=== PATIENT | female | born 1960 | race Caucasian/White ===

== ENCOUNTER 2019-03-06 14:38 | Inpatient (IN) ==
[2019-03-06] MEDS ORDERED: ALBUTEROL/IPRATROPIUM 3 ML NEB RESP TX STA (15:01)
[2019-03-06] MEDS ORDERED: methylPREDNISolone SOD SUC 125 MG/2 ML VIAL IV STA (15:37)
[2019-03-06] MEDS ORDERED: AZITHROMYCIN INJ 500 MG in SODIUM CHLORIDE 0.9% 250 ML IV STA (15:55)
[2019-03-06] MEDS ORDERED: ALBUTEROL NEB SOLN 5 MG/ML 20 ML/BOTTLE RESP TX SCH (16:00)
[2019-03-06 16:54] LABS: Basophils % 0.7 % (0.0-0.8); Eosinophils % 0.2 % (0.00-10.9); Hematocrit 38.3 VOL% (35.7-47.0); Hemoglobin 12.4 GM/DL (12.0-16.0); Immature Granulocytes % 0.2 %; Immature Granulocytes Absolute 0.01 #; Lymphocytes # 2.4 10*3/uL (1.4-4.0); Lymphocytes % 40.3 % (21.3-54.2); Mean Corpuscular HGB Conc 32.4 GM/DL (32-36); Mean Corpuscular Volume 93.2 FL (87-102); Mean Platelet Volume 10.7 FL (9.6-12.0); Monocytes % 14.3 % (1.7-12.7); Neutrophils % 44.3 % (38.7-73.9); Platelet Count 210 T/CUMM (130-400); Red Blood Count 4.11 MC/CUMM (3.8-5.5); Red Cell Distribution Width 13.9 % (9.3-17.3); White Blood Count 5.9 T/CUMM (4-12)
[2019-03-06 17:08] LABS: Alanine Aminotransferase 43 U/L (13-56); Albumin 3.5 G/DL (3.4-5.0); Alkaline Phosphatase 131 U/L (45-117); Aspartate Amino Transferase 69 U/L (0-37); Blood Urea Nitrogen 14 MG/DL (7-18); Calcium 8.6 MG/DL (8.5-10.1); Estimated Glom Filtration Rate 77 ML/MIN; Glucose 106 MG/DL (74-106); Osmolality,Calculated 277.5 MOS/KG (273-304); Total Protein 7.4 G/DL (6.4-8.3)
[2019-03-06 17:22] LABS: Anisocytosis 1+; Lymphocytes 34 % (20-55); Macrocytosis 1+; Microcytosis Slight; Platelet Estimate Normal; Segmented Neutrophils 51 % (50-85); Total Cells Counted 100
[2019-03-06] MEDS: ALBUTEROL/IPRATROPIUM 3 ML NEB RESP TX SCH (19:03)
[2019-03-06] MEDS ORDERED: BISACODYL 5 MG TABLET PO PRN (22:22)
[2019-03-06] MEDS: FLUTICASONE/SALMETEROL 250-50 DISKUS 14 DOSE INH SCH (22:36)
[2019-03-06] MEDS: GABAPENTIN 300 MG CAPSULE PO SCH (22:36)
[2019-03-06] MEDS: ENOXAPARIN 40 MG/0.4 ML SYRINGE SUBCUT SCH (22:36)
[2019-03-06] MEDS: traZODone 50 MG TABLET PO PRN (22:37)
[2019-03-06] MEDS ORDERED: SODIUM CHLORIDE 0.9% 1,000 ML IV ONE (23:00)
[2019-03-06] MEDS: methylPREDNISolone SOD SUC 40 MG/1 ML VIAL IV SCH (23:23)
[2019-03-06] MEDS ORDERED: INFLUENZA VIRUS VACCINE 0.5 ML SYRINGE IM ONE (23:55)
[2019-03-07] MEDS: ALBUTEROL/IPRATROPIUM 3 ML NEB RESP TX SCH ×4 (00:10→19:21)
[2019-03-07] MEDS ORDERED: ALBUTEROL 2.5 MG/3 ML NEB RESP TX PRN (00:15)
[2019-03-07] MEDS: ONDANSETRON 4 MG/2 ML VIAL IV PRN ×3 (00:34→21:56)
[2019-03-07] MEDS: guaiFENesin/CODEINE 5 ML LIQUID PO PRN ×4 (00:35→19:40)
[2019-03-07] MEDS: SODIUM CHLORIDE 0.9% 1,000 ML IV SCH ×3 (00:37→21:06)
[2019-03-07] MEDS: ACETAMINOPHEN 325 MG TABLET PO PRN ×2 (01:40→19:40)
[2019-03-07 07:45] LABS: Apearance,Urine CLEAR (Clear); Bacteria,Urine Occasional /HPF (Few); Bilirubin,Urine Negative (Negative); Blood, Urine Negative (Negative); Glucose,Urine (UA) Negative (Negative); Ketones,Urine Negative (Negative); Nitrite,Urine Negative (Negative); Protein,Urine Negative; RBC,Urine 1 /HPF (0-4); Squamous Epithelial Cell,Urine Occasional /HPF (0-10); Urine Color Straw (Yellow); Urine Specific Gravity 1.008 (1.001-1.035); Urine Urobilinogen < 2.0 EU/DL (0.2-1.0); WBC,Urine <1 /HPF (0-6)
[2019-03-07 07:50] LABS: Barbiturates Screen,Urine Negative (Negative); Benzodiazepines Screen,Urine Negative (Negative); Cannabinoid Screen,Urine Negative (Negative); Opiate Screen,Urine Positive (Negative); Phencyclidine Screen,Urine Negative (Negative)
[2019-03-07] MEDS ORDERED: POTASSIUM CHLORIDE 20 MEQ/15 ML UDCUP PO ONE (08:10)
[2019-03-07] MEDS: DULoxetine 30 MG CAPSULE PO SCH (09:18)
[2019-03-07] MEDS: METOPROLOL SUCCINATE XL 100 MG TABLET PO SCH (09:18)
[2019-03-07] MEDS: AZITHROMYCIN 250 MG TABLET PO SCH (09:18)
[2019-03-07] MEDS: GABAPENTIN 300 MG CAPSULE PO SCH ×2 (09:18→21:06)
[2019-03-07] MEDS: PANTOPRAZOLE 40 MG TABLET PO SCH (09:18)
[2019-03-07] MEDS: ESTRADIOL 1 MG TABLET PO SCH (09:19)
[2019-03-07] MEDS: methylPREDNISolone SOD SUC 40 MG/1 ML VIAL IV SCH ×2 (09:19→15:37)
[2019-03-07] MEDS: FLUTICASONE/SALMETEROL 250-50 DISKUS 14 DOSE INH SCH ×2 (09:22→21:06)
[2019-03-07] MEDS: cefTRIAXone 1,000 MG in SYRINGE 1 EACH IV SCH (12:42)
[2019-03-07 13:17] LABS: Basophils % 0.1 % (0.0-0.8); Hematocrit 32.5 VOL% (35.7-47.0); Hemoglobin 10.4 GM/DL (12.0-16.0); Immature Granulocytes % 0.7 %; Immature Granulocytes Absolute 0.08 #; Lymphocytes # 1.7 10*3/uL (1.4-4.0); Lymphocytes % 13.8 % (21.3-54.2); Mean Corpuscular Volume 96.2 FL (87-102); Mean Platelet Volume 10.7 FL (9.6-12.0); Monocytes % 7.6 % (1.7-12.7); Neutrophils % 77.8 % (38.7-73.9); Platelet Count 207 T/CUMM (130-400); Red Blood Count 3.38 MC/CUMM (3.8-5.5); Red Cell Distribution Width 14.4 % (9.3-17.3)
[2019-03-07] MEDS: traZODone 50 MG TABLET PO PRN (19:41)
[2019-03-07] MEDS: ENOXAPARIN 40 MG/0.4 ML SYRINGE SUBCUT SCH (21:06)
[2019-03-07] MEDS ORDERED: HYDROmorphone 2 MG/1 ML VIAL IV ONE (21:20)
[2019-03-08] MEDS: methylPREDNISolone SOD SUC 40 MG/1 ML VIAL IV SCH ×3 (00:14→20:50)
[2019-03-08] MEDS: ALBUTEROL/IPRATROPIUM 3 ML NEB RESP TX SCH ×4 (00:20→20:12)
[2019-03-08] MEDS: guaiFENesin/CODEINE 5 ML LIQUID PO PRN ×2 (02:46→07:21)
[2019-03-08] MEDS: SODIUM CHLORIDE 0.9% 1,000 ML IV SCH (05:45)
[2019-03-08 05:48] LABS: Alanine Aminotransferase 68 U/L (13-56); Albumin 3.2 G/DL (3.4-5.0); Alkaline Phosphatase 102 U/L (45-117); Aspartate Amino Transferase 92 U/L (0-37); Bilirubin,Total < 0.39 MG/DL (0.2-1.0); Blood Urea Nitrogen 19 MG/DL (7-18); Calcium 8.4 MG/DL (8.5-10.1); Estimated Glom Filtration Rate 60 ML/MIN; Glucose 118 MG/DL (74-106); Osmolality,Calculated 283.3 MOS/KG (273-304); Total Protein 6.9 G/DL (6.4-8.3)
[2019-03-08] MEDS: DICLOFENAC 1.3% PATCH 5/PACK TRANSDERM SCH ×2 (09:09→20:47)
[2019-03-08] MEDS: DULoxetine 30 MG CAPSULE PO SCH (09:13)
[2019-03-08] MEDS: AZITHROMYCIN 250 MG TABLET PO SCH (09:13)
[2019-03-08] MEDS: METOPROLOL SUCCINATE XL 100 MG TABLET PO SCH (09:13)
[2019-03-08] MEDS: GABAPENTIN 300 MG CAPSULE PO SCH ×2 (09:13→20:38)
[2019-03-08] MEDS: ESTRADIOL 1 MG TABLET PO SCH (09:13)
[2019-03-08] MEDS: FLUTICASONE/SALMETEROL 250-50 DISKUS 14 DOSE INH SCH ×2 (09:13→20:47)
[2019-03-08] MEDS: PANTOPRAZOLE 40 MG TABLET PO SCH (09:13)
[2019-03-08] MEDS: cefTRIAXone 1,000 MG in SYRINGE 1 EACH IV SCH (11:28)
[2019-03-08] MEDS: ACETAMINOPHEN 325 MG TABLET PO PRN ×2 (11:29→17:28)
[2019-03-08] MEDS: ONDANSETRON 4 MG/2 ML VIAL IV PRN ×2 (11:29→19:49)
[2019-03-08] MEDS: HYDROcodone/HOMATROPINE 5 ML UDCUP PO PRN ×2 (11:30→19:49)
[2019-03-08] MEDS: ENOXAPARIN 40 MG/0.4 ML SYRINGE SUBCUT SCH (20:38)
[2019-03-08] MEDS: traZODone 50 MG TABLET PO PRN (20:38)
[2019-03-09] MEDS: guaiFENesin/CODEINE 5 ML LIQUID PO PRN ×2 (00:13→04:29)
[2019-03-09] MEDS: ONDANSETRON 4 MG/2 ML VIAL IV PRN ×3 (00:13→10:26)
[2019-03-09] MEDS: ALBUTEROL/IPRATROPIUM 3 ML NEB RESP TX SCH ×2 (00:30→07:35)
[2019-03-09] MEDS ORDERED: CLORAZEPATE 7.5 MG TABLET PO ONE (06:11)
[2019-03-09 09:03] LABS: Basophils % 0.1 % (0.0-0.8); Hematocrit 32.1 VOL% (35.7-47.0); Hemoglobin 10.1 GM/DL (12.0-16.0); Immature Granulocytes % 1.9 %; Immature Granulocytes Absolute 0.26 #; Lymphocytes # 2.5 10*3/uL (1.4-4.0); Lymphocytes % 18.2 % (21.3-54.2); Mean Corpuscular HGB Conc 31.5 GM/DL (32-36); Mean Corpuscular Volume 95.8 FL (87-102); Mean Platelet Volume 11.6 FL (9.6-12.0); Monocytes % 4.7 % (1.7-12.7); Neutrophils % 75.1 % (38.7-73.9); Platelet Count 203 T/CUMM (130-400); Red Blood Count 3.35 MC/CUMM (3.8-5.5); Red Cell Distribution Width 14.3 % (9.3-17.3); White Blood Count 13.6 T/CUMM (4-12)
[2019-03-09] MEDS ORDERED: KETOROLAC 30 MG/1 ML VIAL IV ONE (09:11)
[2019-03-09] MEDS ORDERED: KETOROLAC 10 MG TABLET PO PRN (09:11)
[2019-03-09] MEDS: DULoxetine 30 MG CAPSULE PO SCH (09:15)
[2019-03-09] MEDS: GABAPENTIN 300 MG CAPSULE PO SCH (09:15)
[2019-03-09] MEDS: AZITHROMYCIN 250 MG TABLET PO SCH (09:15)
[2019-03-09] MEDS: PANTOPRAZOLE 40 MG TABLET PO SCH (09:15)
[2019-03-09] MEDS: ESTRADIOL 1 MG TABLET PO SCH (09:15)
[2019-03-09] MEDS: methylPREDNISolone SOD SUC 40 MG/1 ML VIAL IV SCH (09:16)
[2019-03-09] MEDS: FLUTICASONE/SALMETEROL 250-50 DISKUS 14 DOSE INH SCH (09:23)
[2019-03-09 09:25] LABS: Risk Ratio 4.3; VLDL CHOLESTEROL 41.8 MG/DL
[2019-03-09 09:33] LABS: Calcium 8.3 MG/DL (8.5-10.1); Osmolality,Calculated 285.3 MOS/KG (273-304)
[2019-03-09 09:53] LABS: Microcytosis 1+
[2019-03-09] MEDS: SODIUM CHLORIDE 0.9% 1,000 ML IV SCH (10:18)
[2019-03-09] MEDS: METOPROLOL SUCCINATE XL 100 MG TABLET PO SCH (10:19)
[2019-03-09] MEDS: DICLOFENAC 1.3% PATCH 5/PACK TRANSDERM SCH (10:24)
[2019-03-09] MEDS: cefTRIAXone 1,000 MG in SYRINGE 1 EACH IV SCH (10:30)
[2019-03-09 12:40] VITALS: BP 135/74
[2019-03-10] MEDS ORDERED: amLODIPine 10 MG TABLET PO SCH (09:00)
== END 2019-03-09 13:10 | disposition home or self-care (01) | DRG 202 ==
LOC: N.ED 14:38 → N.EDINP 14:38 → SUATTDRO 18:30 → N.2W 19:56 → N.4E 03-08 18:05
PROVIDERS: ADMIT Internal Medicine; ATTEND Internal Medicine